=== PATIENT | female | born 1995 ===

== ENCOUNTER 2017-02-19 15:13 | Emergency (ER) | payer MEDICAID, OTHER ==
[2017-02-19 15:35] VITALS: BP 120/72; PULSE 72; RESP 19; TEMP 98.1; O2SAT 100
--- NOTE | 2017-02-19 15:39 | ED PDOC ---
HPI: Psych/Substance Abuse Time Seen by Provider: 02/19/17 15:35 Chief Complaint (Nursing): Psychiatric Evaluation Chief Complaint (Provider): crisis eval Additional Complaint(s): 21-year-old female presents for crisis evaluation. Patient was in an [employer] cab and texted the [employer] driver that she "wanted her pain to stop." Traffic Maintenance Officer noticed that patient was scratching her own skin, making herself bleed so he called 911 and patient was brought here. Upon arrival, patient denies SI/HI. She states she often picks at her own skin when she feels anxious. She states her only medical complaint is chronic back pain which has been present for over a year. patient takes percocet at home for her chronic pain. Past Medical History Reviewed: Historical Data, Nursing Documentation, Vital Signs Vital Signs: Last Vital Signs Temp 98.1 F 02/19/17 15:29 Pulse 72 02/19/17 15:29 Resp 19 02/19/17 15:29 BP 120/72 02/19/17 15:29 Pulse Ox 100 02/19/17 15:29 - Medical History PMH: Anxiety, Back Problems, Depression, Chronic Kidney Disease - Surgical History Other surgeries: nephrectomy, colostomy with reversal, anal reconstruction, urethral reconstruction - Family History Family History: States: No Known Family Hx - Living Arrangements Living Arrangements: With Family - Social History Current smoker - smoking cessation education provided: Yes Alcohol: Social Drugs: Cannabis - Immunization History Hx Tetanus Toxoid Vaccination: Yes (2011) - Home Medications Home Medications: Ambulatory Orders Medication Instructions Recorded oxyCODONE/Acetaminophen [Percocet 1 tab PO PRN PRN 02/19/17 5/325 mg Tab] - Allergies Allergies/Adverse Reactions: Allergies Allergy/AdvReac Type Severity Reaction Status Date / Time No Known Allergies Allergy Verified 07/27/15 01:01 Review of Systems ROS Statement: Except As Marked, All Systems Reviewed And Found Negative Constitutional: Negative for: Fever Musculoskeletal: Positive for: Back Pain (chronic) Psych: Positive for: Anxiety. Negative for: Suicidal ideation Physical Exam - Reviewed Nursing Documentation Reviewed: Yes Vital Signs Reviewed: Yes - Physical Exam Appears: Positive for: Well, Non-toxic, No Acute Distress Skin: Negative for: Rash Eye Exam: Positive for: Normal appearance Cardiovascular/Chest: Positive for: Regular Rate, Rhythm Respiratory: Positive for: Normal Breath Sounds Gastrointestinal/Abdominal: Positive for: Normal Exam, Soft. Negative for: Tenderness Back: Positive for: Vertebral Tenderness (lower lumbar region). Negative for: L CVA Tenderness, R CVA Tenderness Extremity: Positive for: Normal ROM, Other (superficial abrasions left hand and wrist dorsally, no active bleeding, no infection, N/V intact). Negative for: Pedal Edema Neurologic/Psych: Positive for: Alert, Oriented - Laboratory Results Urine POC: Negative Urine dip results: Negative for: Leukocyte Esterase, Blood, Nitrate, Ketones, Glucose, Bilirubin, Protein - ECG O2 Sat by Pulse Oximetry: 100 Pulse Ox Interpretation: Normal Medical Decision Making Medical Decision Makin21 year old female with anxiety and chronic low back pain Plan: Urine test and urine dip PO tylenol Crissis consult As per crisis counselor and psychiatrist on-call, Dr. Delong, patient does not meet criteria for admission and is stable for discharge. Disposition - Clinical Impression Clinical Impression: Anxiety, Chronic back pain - Patient ED Disposition Is Patient to be Admitted: No Counseled Patient/Family Regarding: Diagnosis, Need For Followup - Disposition Referrals: [facility] [Outside] Disposition: Routine/Home Disposition Time: 16:15 Condition: STABLE Additional Instructions: Follow up as directed by crisis counselor. Instructions: Anxiety (ED), Chronic Back Pain (ED)
== END 2017-02-19 16:30 | disposition home or self-care (01) ==
LOC: H.ER 15:13
DX: F41.9 Anxiety disorder, unspecified (principal); M54.9 Dorsalgia, unspecified; G89.29 Other chronic pain